=== PATIENT | male | born 1995 | race Caucasian/White ===

== ENCOUNTER 2019-01-05 21:00 | Emergency (ER) | payer OTHER ==
[~2019-01-05] VITALS: Ht 175.3 cm; Wt 105.4 kg
[~2019-01-05 21:00] MED LIST: ACET325T33 PO; ALBU8.5H8 INH; AMOX500C2 PO; AZIT250T PO; PROM5SYR2 PO
[2019-01-05 21:15] VITALS: Ht 175.3 cm; Wt 105.4 kg
[2019-01-05] MEDS ORDERED: ALBUTEROL 0.083% (NEB) 2.5 MG/3 ML AMP HHN STA (21:32)
[2019-01-05] MEDS ORDERED: SOD CHLORIDE 0.9% 1,000 ML IV STA (21:32)
--- NOTE | 2019-01-05 21:38 | ERD ---
ER Documentation Chief Complaint Chief Complaint FEVER AND COUGH X3DAYS HPI 23-year-old male, previously healthy, presents the emergency department, complaining of 3 days with progressive worsening of cough, associated with fever, chills and general malaise. The patient has been taking bdgl-xth-ubipray medications without improvement of the symptoms. Otherwise, the patient denies history of lung disease, no recent traveling. He denies chest pain or shortness of breath. ROS All systems reviewed and are negative except as per history of present illness. Medications Home Meds Active Scripts Acetaminophen* (Tylenol*) 325 Mg Tablet, 2 TAB PO Q6 PRN for PAIN AND OR ELEVATE D TEMP, #20 TAB Prov:LATISHA MASSEY MD 01/06/19 Promethazine HCl/Codeine (Prometh-Codein 6.25-10 mg/5 ml) 5 Ml Syrup, 5 ML PO QHS for 5 Days, #60 ML Prov:LATISHA MASSEY MD 01/06/19 Albuterol Sulfate* (Proair HFA*) 8.5 Gm Hfa.aer.ad, 2 PUFF INH Q4H PRN for WHEEZING AND SOB, #1 INHALER Prov:LATISHA MASSEY MD 01/06/19 Azithromycin* (Zithromax*) 250 Mg Tablet, 250 MG PO .ZPACK DIRECTED, #6 TAB TAKE 500 MG (2 TABS) THE FIRST DAY THEN 250 MG (1 TAB) DAYS 2-5 Prov:LATISHA MASSEY MD 01/06/19 Amoxicillin* (Amoxicillin*) 500 Mg Cap, 500 MG PO TID for 7 Days, CAP Prov:LATISHA MASSEY MD 01/06/19 Allergies Allergies: Coded Allergies: No Known Allergy (Unverified , 01/05/19) PMhx/Soc Medical and Surgical Hx: pt denies Medical Hx, pt denies Surgical Hx Hx Alcohol Use: No Hx Substance Use: No Hx Tobacco Use: No Smoking Status: Never smoker FmHx Family History: No diabetes, No coronary disease Physical Exam Vitals Vital Signs Date Temp Pulse Resp B/P (MAP) Pulse Ox O2 O2 Flow FiO2 Time Delivery Rate 01/05/19 96 20 96 21 22:21 01/05/19 102.1 22:02 01/05/19 102.3 102 19 137/68 96 21:15 (91) Physical Exam Patient is in moderate distress due to cough and fever, vital signs showed fever. EYES: PERRLA, EOMI, injected sclerae EARS: Canals clear, erythematous tympanic membranes THROAT: Erythematous oropharynx. NECK: Supple, No lymphadenopathy. Full ROM without pain or tenderness. HEART: RRR, no rubs, murmurs, clicks or gallops. LUNGS: Bilateral rhonchi to auscultation. ABDOMEN: Soft, non-tender without masses or hepatosplenomegaly. EXTREMITIES: No edema bilaterally. BACK: Full ROM, no deformity, normal back exam NEURO: Cranial nerves grossly intact, no motor or sensory deficit Result Diagram: 01/05/19219901/05/192199 Results 24 hrs Laboratory Tests Test 01/05/19 22:00 01/05/19 22:06 01/05/19 23:31 White Blood Count 10.5 10^3/ul Red Blood Count 5.12 10^6/ul Hemoglobin 14.4 g/dl Hematocrit 40.4 % Mean Corpuscular Volume 78.9 fl Mean Corpuscular Hemoglobin 28.1 pg Mean Corpuscular 35.6 g/dl Hemoglobin Concent Red Cell Distribution Width 12.0 % Platelet Count 211 10^3/UL Mean Platelet Volume 9.1 fl Immature Granulocytes % 0.300 % Neutrophils % 74.3 % Lymphocytes % 17.3 % Monocytes % 7.6 % Eosinophils % 0.3 % Basophils % 0.2 % Nucleated Red Blood Cells % 0.0 /100WBC Immature Granulocytes # 0.030 10^3/ul Neutrophils # 7.8 10^3/ul Lymphocytes # 1.8 10^3/ul Monocytes # 0.8 10^3/ul Eosinophils # 0.0 10^3/ul Basophils # 0.0 10^3/ul Nucleated Red Blood Cells # 0.0 10^3/ul Sodium Level 138 mmol/L Potassium Level 2.9 mmol/L Chloride Level 101 mmol/L Carbon Dioxide Level 25 mmol/L Anion Gap 12 Blood Urea Nitrogen 10 mg/dl Creatinine 0.78 mg/dl Est Glomerular Filtrat > 60 mL/min Rate mL/min Glucose Level 115 mg/dl Calcium Level 8.8 mg/dl POC Venous Lactate 1.1 mmol/L Urine Color DESEAN Urine Clarity CLEAR Urine pH 6.0 Urine Specific [place] 1.025 Urine Ketones TRACE mg/dL Urine Nitrite NEGATIVE mg/dL Urine Bilirubin NEGATIVE mg/dL Urine Urobilinogen 1+ mg/dL Urine Leukocyte Esterase NEGATIVE Lior/ul Urine Hemoglobin NEGATIVE mg/dL Urine Glucose NEGATIVE mg/dL Urine Total Protein NEGATIVE mg/dl Current Medications Medications Dose Sig/Vishnu Start Time Status Last (Trade) Ordered Route PRN Stop Time Admin Dose Reason Admin Sodium 1,000 ml @ Q1H STAT 01/05/19 DC 01/05/19 Chloride 1,000 mls/hr IV 21:32 01/05/19 22:00 22:31 Albuterol 5 mg ONCE STAT 01/05/19 DC 01/05/19 (Proventil HHN 21:32 01/05/19 22:21 0.083% (Neb)) 21:36 Ipratropium 0.5 mg ONCE ONCE 01/05/19 DC 01/05/19 [place] INH 22:00 01/05/19 22:21 (Atrovent 22:01 0.02% (Neb)) 650 mg ONCE ONCE 01/05/19 DC 01/05/19 Acetaminophen PO 22:00 01/05/19 22:02 (Tylenol 22:01 Tab) Ceftriaxone 50 ml @ ONCE ONCE 01/05/19 DC 01/05/19 Sodium 100 mls/hr IVPB 23:00 01/05/19 23:04 23:29 Potassium 40 meq ONCE STAT 01/05/19 DC 01/05/19 Chloride PO 22:55 01/05/19 23:03 (Klor-Con 20) 22:57 500 mg ONCE ONCE 01/05/19 DC 01/05/19 Azithromycin PO 23:30 01/05/19 23:48 (Zithromax) 23:31 Patient: REBECA MENDOZA : 1995 Age: 23 Sex: M MR #: [id number] DOS: 01/05/192131 Ordering MD: LATISHA MASSEY MD Location: [facility] Room/Bed: PROCEDURE: XR Chest 2 Views. CLINICAL INDICATION: Cough, fever TECHNIQUE: PA and lateral chest x-ray. COMPARISON: None. FINDINGS: The lungs are adequately expanded. There is mild perihilar interstitial thickening and bronchial wall thickening. There is no focal consolidation, pleural effusion, or pneumothorax. The heart and mediastinal contours are unremarkable. Bones are unremarkable. There are no acute fractures. RPTAT: ZZ IMPRESSION: Mild airways disease which can be seen with viral or atypical pneumonia. No focal consolidation. Procedures/MDM At the time of discharge, patient with nontoxic appearance, vital signs stable, no respiratory distress. Differential diagnosis include but not limited to: upper vs lower respiratory infection bacterial/viral/fungal. Asthma, COPD, pneumonitis, allergies, GERD. Less likely pulmonary embolism, cardiac related or malignancy, but still is a possibility. Physical examination and clinical presentation consistent most likely with atypical PNA. During the ED course the patient remained stable, no new complaints. Treatment options and clinical impression discussed with the patient who agrees with management. The patient is stable to be treated outpatient and will be discharged home. Some side effects of prescribed medications (headache, rash, nausea, vomiting, diarrhea, interactions with other medications) were reviewed. The patient needs to follow up with the primary care provider in the next 48h. If symptoms persist, worsen or new symptoms develop, then patient should return to the ED immediately. Disclaimer: Inadvertent spelling and grammatical errors are likely due to EHR/dictation software use and do not reflect on the overall quality of patient care. Also, please note that the electronic time recorded on this note does not necessarily reflect the actual time of the patient encounter. Patient is Departure Diagnosis: Primary Impression: Atypical pneumonia Condition: Stable Additional Instructions: Thank you very much for allowing us to participate in your care. Your health and safety is our top priority at [facility]. The evaluation in the emergency department has been done to rule out an acute emergency. Chronic, fhy-cjyr-yqjvdllxrxz conditions may have not been evaluated; therefore, you need to follow up with a primary care provider in the next 48h. If symptoms persist, worsen or new symptoms develop, then patient should return to the ED immediately. Call your primary care doctor TOMORROW for an appointment during the next 2-4 days and bring all the information provided. Have prescriptions filled and follow precisely the directions on the label. If the symptoms get worse and your provider is unavailable, return to the Emerg ency Department immediately. LATISHA MASSEY MD Jan 05, 2019 21:38
[2019-01-05] MEDS ORDERED: ACETAMINOPHEN 325 MG TAB PO ONE (22:00)
[2019-01-05] MEDS ORDERED: IPRATROPIUM (NEB) 0.5 MG/2.5 ML AMP INH ONE (22:00)
[2019-01-05] MEDS ORDERED: POTASSIUM CHLORIDE (SR) 20 MEQ TAB PO STA (22:55)
[2019-01-05] MEDS ORDERED: CEFTRIAXONE 1 GM/50 ML (PMX) 50 ML IVPB ONE (23:00)
[2019-01-05] MEDS ORDERED: AZITHROMYCIN 500 MG TAB PO ONE (23:30)
[2019-01-06 00:36] VITALS: BP 116/63; PULSE 94; RESP 22
== END 2019-01-06 00:38 | disposition home or self-care (01) ==
LOC: FTE 21:00
DX: J18.9 Pneumonia, unspecified organism (principal)
CPT/HCPCS: 36415; 71046; 80048; 81003; 83605; 85025; 87040; 94664; 96374; J0696; J7030; Z7502; Z7610